=== PATIENT | female | born 1980 | race Caucasian/White ===

== ENCOUNTER 2018-01-01 13:44 | Emergency (ER) | payer OTHER, MEDICAID ==
[~2018-01-01] VITALS: Ht 175.3 cm; Wt 59.0 kg
[~2018-01-01 13:44] MED LIST: ACYCLOVIR 400400 MG PO; HYDROCODON-ACE1 EAC7 PO; IBUPROFEN 800800 M1 PO; PRENATAL
[2018-01-01] MEDS ORDERED: PROZAC20 MG PO (14:12)
[2018-01-01] MEDS ORDERED: ACETAMINOPHEN-1 EAC1 PO (16:53)
[2018-01-01 17:14] VITALS: BP 116/75
== END 2018-01-01 17:15 | disposition home or self-care (01) ==
LOC: M.ERS 13:44
DX: S30.0XXA Contusion of lower back and pelvis, initial encounter (principal); W00.0XXA Fall on same level due to ice and snow, initial encounter; Y93.89 Activity, other specified; Y92.89 Other specified places as the place of occurrence of the external cause; Y99.8 Other external cause status